=== PATIENT | female | born 1990 | race Caucasian/White ===

== ENCOUNTER 2020-04-09 14:33 | Emergency (ER) | payer SELFPAY ==
[~2020-04-09] VITALS: Ht 157.5 cm; Wt 81.6 kg
[2020-04-09 14:45] VITALS: BP 145/83
[2020-04-09] MEDS ORDERED: IBUPROFEN 600 MG TAB PO ONE (14:55)
[2020-04-09 16:33] VITALS: BP 140/80
== END 2020-04-09 16:33 | disposition home or self-care (01) ==
LOC: MED 14:33
DX: S46.812A Strain of other muscles, fascia and tendons at shoulder and upper arm level, left arm, initial encounter (principal); S16.1XXA Strain of muscle, fascia and tendon at neck level, initial encounter; Z88.5 Allergy status to narcotic agent; Z88.6 Allergy status to analgesic agent; V49.88XA Car occupant (driver) (passenger) injured in other specified transport accidents, initial encounter; Y93.89 Activity, other specified; Y92.89 Other specified places as the place of occurrence of the external cause; Y99.8 Other external cause status
CPT/HCPCS: 29105; 73030; 73060; 99284; Q0092